=== PATIENT | female | born 1940 | race Caucasian/White ===

== ENCOUNTER 2016-07-16 07:45 | Emergency (ER) | payer MEDICARE, OTHER ==
[~2016-07-16] VITALS: Ht 162.6 cm; Wt 75.0 kg
[~2016-07-16 07:45] MED LIST: ART2 PO; ASPI-664 PO; BUDE6HFA INHALATION; CEPH-443 PO; ERGO500037 PO; EZET10TA3 PO; FERR-55 PO; FURO20TA3 PO; LEVEM SC; MECL12.5 PO; MEMA10TA16 PO; METF1000 PO; METH-493 PO; METO100T PO; NOVO3I SC; PANT40TA4 PO; POTA8CAP PO; PYRI25TA12 PO; ROSU20TA PO; SITA100T8 PO; SPIR25TA PO; TICA90TA PO; TIOT18CA INHALATION; TOLT4CAP13 PO; VALS160T20 PO
[2016-07-16 07:56] VITALS: Ht 162.6 cm; Wt 75.0 kg
[2016-07-16] MEDS ORDERED: SOD CHLORIDE 0.9% 1,000 ML IV STA (08:02)
[2016-07-16] MEDS ORDERED: ONDANSETRON 4 MG INJ IV STA (08:02)
[2016-07-16 08:53] LABS: ADD SCAN DIFF NO
[2016-07-16 08:56] LABS: BASOPHILS % 0.4 % (0.0-2.0); EOSINOPHILS % 0.1 % (0.0-7.0); HEMOGLOBIN 12.9 g/dl (12.0-16.0); LYMPHOCYTES # 1.6 10^3/ul (0.8-2.9); LYMPHOCYTES % 15.1 % (15.0-51.0); MEAN CORPUSCULAR HEMOGLOBIN 29.5 pg (29.0-33.0); MEAN CORPUSCULAR HGB CONC 31.5 g/dl (32.0-37.0); MEAN CORPUSCULAR VOLUME 93.8 fl (82.0-101.0); MEAN PLATELET VOLUME 10.3 fl (7.4-10.4); MONOCYTE # 0.2 10^3/ul (0.3-0.9); NEUTROPHIL # 8.6 10^3/ul (1.6-7.5); PLATELET COUNT 219 10^3/UL (140-415); RED BLOOD COUNT 4.37 10^6/ul (4.20-5.40); RED CELL DISTRIBUTION WIDTH 14.6 % (11.5-14.5); WHITE BLOOD COUNT 10.5 10^3/ul (4.8-10.8)
[2016-07-16 09:09] LABS: INR 1.17; PT RATIO 1.2
[2016-07-16 09:10] LABS: PARTIAL THROMBOPLASTIN TIME 25.4 Sec (25.0-35.0)
[2016-07-16 09:11] LABS: ALBUMIN 3.8 g/dl (3.3-4.9)
[2016-07-16 09:12] LABS: CHLORIDE 105 mmol/L (97-110); POTASSIUM 4.2 mmol/L (3.5-5.1); SODIUM 142 mmol/L (135-144)
[2016-07-16 09:14] LABS: BILIRUBIN,INDIRECT 0.5 mg/dl (0-1.1); BILIRUBIN,TOTAL 0.5 mg/dl (0.2-1.3); CREATININE 1.04 mg/dl (0.44-1.00)
[2016-07-16 09:15] LABS: ALANINE AMINOTRANSFERASE 26 IU/L (13-69); ALKALINE PHOSPHATASE 77 IU/L (42-121); ANION GAP 17 (8-16); ASPARTATE AMINO TRANSFERASE 31 IU/L (15-46); BLOOD UREA NITROGEN 34 mg/dl (7-20); CARBON DIOXIDE 24 mmol/L (21-31); GLUCOSE 214 mg/dl (70-220); TOTAL PROTEIN 7.4 g/dl (6.1-8.1)
[2016-07-16 09:16] LABS: CALCIUM 9.7 mg/dl (8.4-10.2)
[2016-07-16 09:27] LABS: TROPONIN-I < 0.012 ng/ml (0.00-0.12)
--- NOTE | 2016-07-16 09:39 | RADRPT ---
PROCEDURE: CT Brain without contrast. CLINICAL INDICATION: Headache TECHNIQUE: A CT of the brain was performed on a multidetector CT scanner utilizing axial sections from the skull base through the vertex without contrast. Images were reviewed on a high-resolution [employer] workstation. Exam CTDI = 44.63 mGy and the DLP = 720.23 mGy-cm. One or more of the following dose reduction techniques were used: Automated exposure control Adjustment of the mA and/or kV according to patient size. Use of iterative reconstruction technique. COMPARISON: None available FINDINGS: Mild diffuse cerebral and cerebellar atrophy is present. There is proportionate dilatation of the v entricular system and sulci in a symmetric fashion. There is prominence of the extraaxial spaces sec ondary to atrophy. There is no evidence of intracranial hemorrhage, mass effect or midline shift. N o abnormal intra-axial or extra-axial fluid collections are seen. The density of the brain is little l and the rock/white matter differentiation is well preserved. Mild patchy diffuse deep white matte r microangiopathic ischemic change is seen. The osseous structures are unremarkable. There is pa rtial opacification of the right maxillary sinus with sinus wall thickening in keeping with chronic sinusitis. Remainder of the paranasal sinuses are clear. Vascular calcifications are identified. IMPRESSION: 1. No intracranial hemorrhage, mass effect or midline shift. 2. Mild generalized atrophy. Mild microangiopathic ischemic change. 3. Intracranial atherosclerosis. RPTAT: BB .Shun Meek MD, Date Time Electronically viewed and signed by .Shun Meek MD, on 07/16/2016 09:39 .O/
[2016-07-16 10:24] LABS: ADD UMIC YES; URINE BILIRUBIN (Dip) NEGATIVE (NEGATIVE); URINE BLOOD (Dip) 1+ (NEGATIVE); URINE GLUCOSE (Dip) >=1000 % (NEGATIVE); URINE KETONES (Dip) TRACE (NEGATIVE); URINE LEUKOCYTE ESTERASE (Dip) 2+ (NEGATIVE); URINE NITRITE (Dip) POSITIVE (NEGATIVE); URINE TOTAL PROTEIN (Dip) NEGATIVE (NEGATIVE); URINE UROBILINOGEN (Dip) 0.2 E.U./dL (0.1-1.0)
[2016-07-16] MEDS ORDERED: PYRI50TA14 PO (10:29)
[2016-07-16] MEDS ORDERED: EMPA1TAB9 PO (10:30)
[2016-07-16] MEDS ORDERED: FESO8TAB PO (10:30)
[2016-07-16 10:41] LABS: URINE COLOR YELLOW (YELLOW)
[2016-07-16 10:43] LABS: BACTERIA,URINE MODERATE
[2016-07-16] MEDS ORDERED: SODIUM CHLORIDE 0.9% 1L BAG IV* STA (10:46)
[2016-07-16] MEDS ORDERED: CEFTRIAXONE 1 GM/50 ML (PMX) 50 ML IVPB STA (10:46)
[2016-07-16] MEDS ORDERED: ONDA4TAB14 PO (10:51)
[2016-07-16] MEDS ORDERED: CEPH-443 PO (10:51)
--- NOTE | 2016-07-16 11:01 | RADRPT ---
PROCEDURE: Chest 1 views. CLINICAL INDICATION: Shortness of breath, pneumonia TECHNIQUE: AP views of the chest was obtained. COMPARISON: July 10, 2015 FINDINGS: The heart is large. Subsegmental atelectasis is noted at the lung bases. No consolidations are ident ified. No pneumothorax is seen. The osseous structures are osteopenic, but appear grossly intact. Degenerative changes are seen in the shoulders. IMPRESSION: Cardiomegaly . Hypoinflated lungs with atelectasis at the lung bases. RPTAT: AA .Ajay Duran MD, MD Date Time Electronically viewed and signed by .Ajay Duran MD, on 07/16/2016 11:01 .P/
[2016-07-16 12:09] VITALS: BP 125/65; PULSE 93; RESP 16
--- NOTE | 2016-07-16 12:17 | ERD ---
ER Documentation Chief Complaint Date/Time DATE: 07/16/16 TIME: 12:12 Chief Complaint Nausea, Weakness since yesterday HPI 76-year-old female brought in by ambulance from home for nausea and vomiting that started in the morning. She has had multiple episodes of vomiting. She complains of lower abdominal discomfort. She also has associated generalized weakness. No fevers but she does endorse chills. No diarrhea or constipation. No chest pain, shortness of breath. ROS All systems reviewed and are negative except as per history of present illness. Medications Home Meds Active Scripts Cephalexin* (Keflex*) 500 Mg Capsule, 500 MG PO TID for 10 Days, CAP Prov:JASBIR COX MD 07/16/16 Ondansetron (Ondansetron Odt) 4 Mg Tab.rapdis, 4 MG PO Q6H Y for NAUSEA AND/OR VOMITING, #10 TAB Prov:JASBIR COX MD 07/16/16 Reported Medications Fesoterodine Fumarate (Toviaz) 8 Mg Tab.sr.24h, 8 MG PO DAILY, TAB 07/16/16 Empagliflozin/Metformin HCl (Synjardy 5-1,000 mg Tablet) 1 Each Tablet, 1 EACH PO BID, TAB 07/16/16 Pyridoxine Hcl* (Pyridoxine Hcl*) 50 Mg Tablet, 50 MG PO BID, TAB 07/16/16 Meclizine Hcl* (Meclizine Hcl*) 12.5 Mg Tablet, 12.5 MG PO Q8H Y for DIZZINESS, TAB 07/10/15 Trihexyphenidyl Hcl* (Trihexyphenidyl Hcl*) 2 Mg Tab, 2 MG PO DAILY, #120 TAB 07/10/15 Ezetimibe* (Zetia*) 10 Mg Tablet, 10 MG PO HS, TAB 07/10/15 Insulin Aspart* (Novolog Insulin Pen*) 100 Unit/Ml Soln, 40 UNIT SC AC MEALS, EA 07/10/15 Insulin Detemir* (Levemir*) 100 U/Ml Vial, 50 UNIT SC DAILY, VIAL 07/10/15 Pantoprazole* (Pantoprazole*) 40 Mg Tablet.dr, 40 MG PO AC BREAKFAST, TAB 07/10/15 Memantine* (Namenda*) 10 Mg Tablet, 10 MG PO BID, #60 TAB 07/10/15 Spironolactone* (Aldactone*) 25 Mg Tablet, 25 MG PO DAILY, #30 TAB 07/10/15 Valsartan* (Diovan*) 160 Mg Tablet, 160 MG PO BID, TAB 07/10/15 Ergocalciferol (Vitamin D2) (VITAMIN D2) 50,000 Unit Capsule, 31141 UNIT PO WEEKLY, CAP 07/10/15 Sitagliptin* (Januvia*) 100 Mg Tablet, 100 MG PO DAILY 12/07/12 Methimazole* (Methimazole*) 5 Mg Tablet, 5 MG PO DAILY 12/07/12 Ticagrelor* (Brilinta*) 90 Mg Tablet, 90 MG PO BID 12/07/12 Furosemide* (Furosemide*) 20 Mg Tablet, 20 MG PO DAILY 12/07/12 Metoprolol (Lopressor) 100 Mg Tablet, 100 MG PO BID 12/07/12 Aspirin* (Aspirin* EC) 81 Mg Tablet.dr, 81 MG PO DAILY 10/08/12 Rosuvastatin Calcium* (Crestor*) 20 Mg Tablet, 20 MG PO DAILY 10/08/12 Discontinued Reported Medications Tolterodine Tartrate* (Tolterodine Tartrate* ER) 4 Mg Cap.er.24h, 4 MG PO DAILY , #30 CAP 07/10/15 Tiotropium Ray* (Spiriva*) 18 Mcg Cap.w.dev, 1 CAP INHALATION DAILY, #30 CAP 07/10/15 Metformin Hcl* (Metformin Hcl*) 1,000 Mg Tablet, 1000 MG PO BID, #30 TAB 07/10/15 Budesonide-Formoterol Fumarate* (Symbicort*) 160-4.5 Hfa.aer.ad, 2 PUFF INHALATION BID, #1 EACH 07/10/15 Potassium Chloride* (Potassium Chloride*) 8 Meq Capsule.er, 10 MEQ PO DAILY 12/07/12 Ferrous Sulfate* (Ferrous Sulfate*) 325 Mg Tablet, 325 MG PO DAILY 12/07/12 Pyridoxine Hcl* (Pyridoxine Hcl*) 25 Mg Tablet, 50 MG PO BID 12/07/12 Discontinued Scripts Cephalexin* (Keflex*) 500 Mg Capsule, 500 MG PO BID for 7 Days, CAP Prov:AC CARRASCO MD 07/10/15 Allergies Allergies: Coded Allergies: No Known Allergy (Unverified , 07/16/16) PMhx/Soc History of Surgery: Yes (ANGIOGRAM) Anesthesia Reaction: No Hx Neurological Disorder: Yes (CVA 2012) Hx Respiratory Disorders: No Hx Cardiac Disorders: Yes ([place] 2012) Hx Psychiatric Problems: No Hx Miscellaneous Medical Probl: Yes (HYPERCHOLESTEROLEMIA) Hx Alcohol Use: No Hx Substance Use: No Hx Tobacco Use: No Smoking Status: Never smoker FmHx Family History: No diabetes Physical Exam Vitals Vital Signs Date Time Temp Pulse Resp B/P Pulse Ox O2 Delivery O2 Flow Rate FiO2 07/16/16 12:09 93 16 125/65 100 Room Air 07/16/16 10:19 Nasal Cannula 2 07/16/16 10:19 93 18 144/96 96 Nasal Cannula 2.0 07/16/16 07:56 98.0 88 20 164/69 93 Physical Exam Const: Staring into space, poor eye contact, mild distress Head: Atraumatic Eyes: Normal Conjunctiva. PERRLA, EOMI ENT: Dry mucous membranes Neck: Full range of motion..~ No meningismus. Resp: Clear to auscultation bilaterally Cardio: Regular rate and rhythm, no murmurs Abd: Soft, non tender, non distended. Normal bowel sounds Skin: No petechiae or rashes Back: No midline or flank tenderness Ext: No cyanosis, or edema Neur: Awake and alert, very slow to answer questions, strength and sensations intact in all 4 extremities, cranial nerves intact Psych: Normal Mood and Affect Result Diagram: 07/16/16 0830 07/16/16 0830 Results 24 hrs Laboratory Tests Test 07/16/16 08:30 07/16/16 08:38 07/16/16 10:05 White Blood Count 10.510^3/ul Red Blood Count 4.3710^6/ul Hemoglobin 12.9g/dl Hematocrit 41.0% Mean Corpuscular Volume 93.8fl Mean Corpuscular Hemoglobin 29.5pg Mean Corpuscular Hemoglobin Concent 31.5g/dl Red Cell Distribution Width 14.6% Platelet Count 51834^3/UL Mean Platelet Volume 10.3fl Neutrophils % 82.0% Lymphocytes % 15.1% Monocytes % 2.0% Eosinophils % 0.1% Basophils % 0.4% Nucleated Red Blood Cells % 0.0/100WBC Neutrophils # 8.610^3/ul Lymphocytes # 1.610^3/ul Monocytes # 0.210^3/ul Eosinophils # 0.010^3/ul Basophils # 0.010^3/ul Nucleated Red Blood Cells # 0.010^3/ul Prothrombin Time 15.0Sec Prothrombin Time Ratio 1.2 INR International Normalized Ratio 1.17 Activated Partial Thromboplast Time 25.4Sec Sodium Level 142mmol/L Potassium Level 4.2mmol/L Chloride Level 105mmol/L Carbon Dioxide Level 24mmol/L Anion Gap 17 Blood Urea Nitrogen 34mg/dl Creatinine 1.04mg/dl Glucose Level 214mg/dl Calcium Level 9.7mg/dl Total Bilirubin 0.5mg/dl Direct Bilirubin 0.00mg/dl Indirect Bilirubin 0.5mg/dl Aspartate Amino Transf (AST/SGOT) 31IU/L Alanine Aminotransferase (ALT/SGPT) 26IU/L Alkaline Phosphatase 77IU/L Troponin I < 0.012ng/ml Total Protein 7.4g/dl Albumin 3.8g/dl Bedside Glucose 194mg/dL Urine Color YELLOW Urine Clarity CLOUDY Urine pH 6.5 Urine Specific [place] 1.015 Urine Ketones TRACE Urine Nitrite POSITIVE Urine Bilirubin NEGATIVE Urine Urobilinogen 0.2 E.U./dL Urine Leukocyte Esterase 2+ Urine Microscopic RBC 5-10/HPF Urine Microscopic WBC 25-50/HPF Urine Epithelial Cells FEW Urine Bacteria MODERATE Urine Hemoglobin 1+ Urine Glucose >=1000% Urine Total Protein NEGATIVE Current Medications Medications (Trade) Dose Ordered Sig/Saad Route PRN Reason Start Time Stop Time Status Last Admin Dose Admin Sodium Chloride (NS) 1,000 ml @ 1,000 mls/hr Q1H STAT IV 07/16/16 08:02 07/16/16 09:01 DC 07/16/16 08:31 Ondansetron HCl (Zofran Inj) 4 mg ONCE STAT IV 07/16/16 08:02 07/16/16 08:04 DC 07/16/16 08:31 Sodium Chloride 1000 ml 1,000 ml BOLUS OVER 2 HOURS STAT IV* 07/16/16 10:46 07/16/16 10:47 DC 07/16/16 10:59 Ceftriaxone Sodium (Rocephin) 50 ml @ 100 mls/hr ONCE STAT IVPB 07/16/16 10:46 4/19/17 11:15 DC 07/16/16 10:58 Procedures/MDM EMERGENT LABS AND DIAGNOSTIC STUDIES: Lab Results above were reviewed and interpreted by me. CBC normal BMP shows mild elevation of BUN and creatinine, likely prerenal Lactate within normal limits 12-lead EKG was interpreted by Roman Cox MD: Normal Sinus Rhythm with frequent PVCs Normal axis QTC prolonged No acute ST or T wave changes suggestive of acute ischemia or STEMI. Radiology Results as interpreted by Radiology below were reviewed by García Cox MD: Chest x-ray: Cardiomegaly, no acute process CT head: 1. No intracranial hemorrhage, mass effect or midline shift. 2. Mild generalized atrophy. Mild microangiopathic ischemic change. 3. Intracranial atherosclerosis. Initial Nursing notes reviewed. Previous Medical Records requested via the Electronic Health Record. EMERGENCY DEPARTMENT COURSE / MEDICAL DECISION MAKING: Patient is presenting with generalized weakness with nausea and vomiting. She is afebrile with stable vitals. I have a low suspicion for acute intracranial process, however given that the patient was so slow to answer questions, head CT was done and was normal. Exam is not consistent with an acute surgical abdomen. EKG does not show acute ischemia. Troponin was negative. At this time I have a low suspicion for ACS. Labs are consistent with mild dehydration. IV fluids were given. Urinalysis showed evidence of UTI. Ceftriaxone IV was given. Patient's symptoms significantly improved with treatment in the ED. She feels like she is ready to go home and is tolerating fluids by mouth. Her daughter is at bedside and feels comfortable taking her home and would actually like to take her home. I will prescribe Keflex and Zofran. They were instructed to return to the ER tomorrow if her symptoms are worsening or not improving. Departure Diagnosis: Primary Impression: Mild nausea and vomiting Additional Impression: UTI (urinary tract infection) Urinary tract infection type: acute cystitis Hematuria presence: without hematuria Qualified Code: N30.00 - Acute cystitis without hematuria Condition: Stable Patient Instructions: Urinary Tract Infections in Women Additional Instructions: Bring her back to the ER if her symptoms are not improving or are worsening by tomorrow. JASBIR COX MD Jul 16, 2016 12:17
== END 2016-07-16 12:13 | disposition home or self-care (01) ==
LOC: FTE 07:45 → E/R 12:13
DX: R11.2 Nausea with vomiting, unspecified (principal); N30.00 Acute cystitis without hematuria; E11.9 Type 2 diabetes mellitus without complications; E03.9 Hypothyroidism, unspecified; R06.02 Shortness of breath; R51 Headache; Z79.4 Long term (current) use of insulin; Z79.84 Long term (current) use of oral hypoglycemic drugs; Z79.82 Long term (current) use of aspirin
CPT/HCPCS: 70450; 71010; 80048; 80076; 81001; 82962; 84484; 85025; 85610; 85730; 87086; 93005; A4310; J0696; J2405; J7030; 36415; 81003; 96374; 96375; P9612

== ENCOUNTER 2017-10-03 18:32 | Inpatient (IN) | END 2017-10-21 18:10 | disposition home health service (06) | DRG 871 ==

== ENCOUNTER 2018-02-03 12:01 | Emergency (ER) | END 2018-02-03 18:36 | disposition home or self-care (01) ==